=== PATIENT | male | born 1980 | race Hispanic/Latino ===

== ENCOUNTER 2021-12-29 08:11 | Emergency (ER) | payer BC ==
[~2021-12-29] VITALS: Ht 182.9 cm; Wt 84.8 kg
[2021-12-29 09:25] LABS: BASOPHILS % (AUTO) 0.3 % (0.0-5.0); EOSINOPHILS % (AUTO) 1.2 % (0.0-8.0); LYMPHOCYTES % (AUTO) 22.3 % (21.0-51.0); MEAN CORPUSCULAR HGB CONC 34.1 g/dL (32.0-36.0); MONOCYTES % (AUTO) 7.8 % (3.0-13.0); NEUTROPHILS % (AUTO) 68.2 % (40.0-77.0); PLATELET COUNT (AUTO) 193 K/uL (130-400); RED BLOOD CELL COUNT(AUTO) 4.66 MIL/uL (4.50-6.20); RED CELL DISTRIBUTION WIDTH 11.9 % (11.0-15.5); WHITE BLOOD COUNT (AUTO) 6.6 K/uL (4.8-10.8)
[2021-12-29] MEDS ORDERED: LIDOCAINE 5% TOPICAL PATCH TP ONE (09:30)
[2021-12-29] MEDS ORDERED: KETOROLAC 15MG/ML VIAL (15MG/ML) IM ONE (09:30)
[2021-12-29 09:42] LABS: ALBUMIN 4.1 g/dL (3.5-5.0); BILIRUBIN,TOTAL 0.5 mg/dL (0.2-1.0); CREATININE 1.1 mg/dL (0.5-1.5); POTASSIUM 3.9 mmol/L (3.5-5.1); TOTAL PROTEIN, SERUM 7.3 g/dL (6.0-8.3)
[2021-12-29 09:50] VITALS: BP 121/67
[2021-12-29] MEDS ORDERED: LIDOP TD (09:53)
[2021-12-29] MEDS ORDERED: NAPR-1180 PO (09:53)
[2021-12-29 10:02] LABS: APPEARANCE,URINE Clear (CLEAR); BILIRUBIN,URINE Negative (NEGATIVE); COLOR,URINE Yellow (YELLOW); GLUCOSE, URINE (UA) Negative (NEGATIVE); KETONES,URINE Negative (NEGATIVE); LEUKOCYTE ESTERASE ,URINE Negative (NEGATIVE); NITRATE,URINE Negative (NEGATIVE); OCCULT BLOOD,URINE Negative (NEGATIVE); PH,URINE 6.5 (5.0-8.0); PROTEIN,URINE Negative (NEGATIVE); UROBILINOGEN,URINE 0.2 mg/dL (0.2-1.0)
== END 2021-12-29 10:13 | disposition home or self-care (01) ==
LOC: EDH 08:11
DX: S33.9XXA Sprain of unspecified parts of lumbar spine and pelvis, initial encounter (principal); R55 Syncope and collapse; Z79.1 Long term (current) use of non-steroidal anti-inflammatories (NSAID); X58.XXXA Exposure to other specified factors, initial encounter; Y93.89 Activity, other specified; Y92.89 Other specified places as the place of occurrence of the external cause; Y99.8 Other external cause status
CPT/HCPCS: 36415; 80053; 81003; 85025; 93005; 96372; 99284; J1885

== ENCOUNTER → 2025-01-20 | Outpatient (CLI) | payer OTHER ==
[~2025-01-20] MED LIST: LIDOP TD; NAPR-1180 PO
[2025-01-20 22:44] VITALS: PULSE 54; RESP 12
[2025-01-20 23:02] VITALS: PULSE 45; RESP 10
[2025-01-20 23:30] VITALS: PULSE 48; RESP 8
[2025-01-21] VITALS (11 sets, daily range): PULSE 47–53; RESP 8–10
== END | disposition home or self-care (01) ==
LOC: SLP 20:29
PROVIDERS: ATTEND Internal Medicine Pulmonary Disease
DX: G47.33 Obstructive sleep apnea (adult) (pediatric) (principal); R06.83 Snoring; R53.83 Other fatigue; R45.1 Restlessness and agitation
CPT/HCPCS: 95810